=== PATIENT | female | born 1995 | race African-American/Black ===

== ENCOUNTER 2024-03-07 09:30 | Emergency (ER) | payer OTHER, SELFPAY ==
[2024-03-07] MEDS ORDERED: Acetaminophen 500 MG TAB ONE (09:57)
[2024-03-07 10:28] LABS: Bilirubin Neg (Negative); Blood, Urine Negative (Negative); Clarity Clear (Clear); Glucose, Urine (Dipstick) Normal (Negative); Ketone, Urine Negative (Negative); Leukocyte Negative (Negative); Nitrite Negative (Negative); Protein, Urine (Dipstick) Negative (Neg-Trace); Specific Gravity, Urine 1.005 (1.005-1.030); Urobilinogen Normal mg/dL (Less than 2)
[2024-03-07 10:54] LABS: Bacteria/HPF Rare-Few HPF (None Seen); CAUTI Indications for Culture Pelvic or flank pain; RBC/HPF 0-3 HPF (0-3); Squamous Epithelial 0-3 HPF (0-3); WBC/HPF 0-3 HPF (0-3)
[2024-03-07 10:55] LABS: Mucous/LPF Rare LPF (<2+); Urine Culture Reflex No No
== END 2024-03-07 11:33 | disposition home or self-care (01) ==
LOC: CSHERS 09:30
DX: O99.891 Other specified diseases and conditions complicating pregnancy (principal); R10.9 Unspecified abdominal pain; Z3A.16 16 weeks gestation of pregnancy
CPT/HCPCS: 81001; 87480; 87510; 87660; 99284

== ENCOUNTER 2024-08-11 04:08 | Inpatient (IN) | payer OTHER ==
[2024-08-11 04:57] LABS: Hematocrit 36.3 % (34.9-44.5); Hemoglobin 12.2 g/dL (12.0-15.5); Mean Corpuscular HGB CONC 33.6 g/dL (32.0-36.0); Mean Corpuscular Hemoglobin 30.7 pg (27.0-33.0); Mean Corpuscular Volume 91.4 fL (81.6-98.3); Platelet Count 229 10x3/uL (150-450); RBC Distribution Width 12.7 % (11.5-14.5); Red Blood Cell (RBC) Count 3.97 10x6/uL (3.90-5.03); White Blood Cell (WBC) Count 8.4 10x3/uL (3.5-10.5)
[2024-08-11] MEDS: fentaNYL/Ropivacaine Epidural 100 ML ONE (05:14)
[2024-08-11] MEDS ORDERED: Ondansetron PF 4 MG/2 ML Vial IVP PRN ×2 (05:18→08:48)
[2024-08-11] MEDS ORDERED: diphenhydrAMINE 50 MG/ML VIAL IVP PRN (05:18)
[2024-08-11] MEDS ORDERED: Acetaminophen 325 MG TAB PO PRN (05:18)
[2024-08-11] MEDS ORDERED: Lactated Ringer's 500 ML IV PRN (05:18)
[2024-08-11] MEDS ORDERED: Promethazine HCl 25 MG/ML VIAL IM PRN (05:18)
[2024-08-11] MEDS ORDERED: ePHEDrine Sulfate 50 MG/10 ML VIAL SLOW IVP PRN (05:18)
[2024-08-11] MEDS ORDERED: Moisturizing Cream (Eucerin) 113 GM JAR TOP PRN (05:18)
[2024-08-11] MEDS ORDERED: Naloxone HCl 0.4 mg/ml Vial IVP PRN ×2 (05:18)
[2024-08-11 05:30] LABS: HBsAg Index 0.16 S/CO (0-0.99); Hep B Surf Ag - L&D Non-Reactive S/CO (NonReactive)
[2024-08-11] MEDS ORDERED: fentaNYL 2 mcg/Ropivacaine 0.2% Epidural 100 ML CADD EPIDURAL SCH (05:30)
[2024-08-11] MEDS ORDERED: Communication Order-Pharmacy FS SCH (05:30)
[2024-08-11 05:31] LABS: Syphilis Antibody Nonreactive (Nonreactive); Syphilis Antibody Index 0.06 S/CO (<1.00 Non-Reactive)
[2024-08-11 05:43] VITALS: BMI 32.1
[2024-08-11] MEDS: Oxytocin 30 units/NS 500 ML 500 ML ONE (06:47)
[2024-08-11] MEDS ORDERED: hydrALAZINE 20 MG/ML VIAL SLOW IVP PRN (08:48)
[2024-08-11] MEDS: fentaNYL/Ropivacaine Epidural 0 ML ONE (08:48)
[2024-08-11] MEDS ORDERED: Milk Of Magnesia 30 ML UDCUP PO PRN (08:48)
[2024-08-11] MEDS ORDERED: Lanolin Ointment 7 GM TUBE TOP PRN (08:48)
[2024-08-11] MEDS ORDERED: diphenhydrAMINE 25 MG CAP PO PRN (08:48)
[2024-08-11] MEDS ORDERED: Benzocaine-Menthol 82.5 ML CAN TOP PRN (08:48)
[2024-08-11] MEDS ORDERED: Preparation H Ointment 28 GM TUBE PR PRN (08:48)
[2024-08-11] MEDS ORDERED: Bisacodyl 10 MG SUPP PR PRN (08:48)
[2024-08-11] MEDS: Ibuprofen 800 MG TAB PO SCH (09:10)
[2024-08-11] MEDS: Ferrous Sulfate 325 MG TAB PO SCH (09:10)
[2024-08-11] MEDS: Docusate 100 MG CAP PO SCH (09:10)
[2024-08-11] MEDS: Prenatal Vitamin 1 TAB PO SCH (09:10)
[2024-08-11] MEDS: Boostrix 0.5 ML (Tdap) VIAL (>/=7 yrs of age) IM ONE (13:55)
[2024-08-11] MEDS: HYDROcodone/Acetaminophen 5/325 mg Tablet PO PRN ×2 (13:56→21:03)
[2024-08-13 09:40] VITALS: BP 134/66; TEMP 97.6
== END 2024-08-13 12:10 | disposition home or self-care (01) | DRG 807 ==
LOC: CSHLD/OP 04:08 → CSHLD 06:10 → CSHPP 10:25
PROVIDERS: ADMIT Student in an Organized Health Care Education/Training Program; ATTEND Student in an Organized Health Care Education/Training Program
PROC: 10E0XZZ Delivery of Products of Conception, External Approach (ICD-10-PCS; principal; 2024-08-11)
DX: O80 Encounter for full-term uncomplicated delivery (principal); Z37.0 Single live birth; Z88.8 Allergy status to other drugs, medicaments and biological substances; Z3A.39 39 weeks gestation of pregnancy
CPT/HCPCS: 51702; 85027; 86780; 86850; 86900; 86901; 87340; 99285; J2590

== ENCOUNTER 2025-06-20 17:17 | Emergency (ER) | payer OTHER | END 2025-06-20 18:48 | disposition home or self-care (01) | LOC: CSHERS 17:17 | DX: M54.2 Cervicalgia (principal); M54.50 Low back pain, unspecified; F17.290 Nicotine dependence, other tobacco product, uncomplicated; V89.2XXA Person injured in unspecified motor-vehicle accident, traffic, initial encounter | CPT/HCPCS: 72040; 99284 ==